=== PATIENT | female | born 1975 | race African-American/Black ===

== ENCOUNTER 2020-05-10 02:22 | Outpatient (CLI) | payer OTHER, SELFPAY ==
[2020-05-10 18:46] LABS: SARS-CoV-2 RNA PCR Negative
== END 2020-05-10 02:23 | disposition home or self-care (01) ==
LOC: ANHCOVIDDT 02:22
PROVIDERS: PCP Nurse Practitioner Family; Visit Provider Obstetrics & Gynecology
DX: Z01.818 Encounter for other preprocedural examination (principal); Z20.828 Contact with and (suspected) exposure to other viral communicable diseases
CPT/HCPCS: 87635; C9803; U0003

== ENCOUNTER 2020-05-10 08:32 | Outpatient (CLI) | payer OTHER, SELFPAY ==
--- NOTE | 2020-05-10 08:41 | ECG_ITS ---
Measurements Intervals [place] Rate: 73 P: 60 OK: 135 QRS: 17 QRSD: 92 T: -21 QT: 365 QTc: 404 Interpretive Statements SINUS RHYTHM LOW VOLTAGE- PRECORDIAL LEADS BORDERLINE ST-T WAVE ABNORMALITY- ANTEROLAT/INF LEADS BASELINE ARTIFACT- I, II, III, AVR, AVL, AVF BORDERLINE ECG Electronically Signed On 05-10-2020 9:01:18 GENERAL ACCOUNTANT by Jerrell Ballesteros D.O.
== END 2020-05-10 08:33 | disposition home or self-care (01) ==
PROVIDERS: PCP Nurse Practitioner Family; Visit Provider Obstetrics & Gynecology
DX: Z01.818 Encounter for other preprocedural examination (principal); I10 Essential (primary) hypertension; R94.31 Abnormal electrocardiogram [ECG] [EKG]
CPT/HCPCS: 93005

== ENCOUNTER 2020-05-13 01:37 | Day surgery (SDC) | payer OTHER, SELFPAY ==
[2020-05-09 08:40] VITALS: BMI 31.9
--- NOTE | 2020-05-13 09:09 | P.PNAN_ITS ---
Anes - Initial Pre Proc Eval Procedure: Operation Date: 05/13/20 13:30 Proposed Procedures p Hysteroscopy, Laura Endometrial Ablation - Augie Sim MD Date/Time: 05/13/20 09:09 Surgeon: Augie Sim MD Pre Op Diagnosis: Abnormal Uterine Bleeding Patient Data Age: 44 Gender: F Height: 1.73 m Weight: 95.35 kg Allergies Allergy/AdvReac Type Severity Reaction Status Date / Time No Known Allergies Allergy Verified 05/13/20 11:50 Home Medications Medication Instructions Recorded Confirmed Type metoprolol succinate 25 mg PO DAILY 05/09/20 05/13/20 History Patient hx anesthesia problems: none Family hx anesthesia problems: none [facility] Past Medical History Medical History (Updated 05/13/20 @ 11:22 by Augie Sim MD) Abnormal uterine bleeding (AUB) Hypertension Surgical History Surgical History History of cholecystectomy Social History Social History Smoking status: Never smoker Living arrangements: with family Spiritual care concerns: No Anes - Eval Final PreProcedure Day of Procedure 05/13/20 09:09 Patient weight: obese Heart: regular rate and rhythm Lungs: clear to auscultation and normal air movement Airway: Mallampati scale class II Neurological: alert and oriented Last oral intake: >/= 8 hours ASA classification: III Emergent: no Anesthetic plan: proceed Anesthesia type and monitoring: general GIVS and standard monitoring Informed Consent: The patient's anesthetic plan and its attendant risks and benefits were discussed with the patient/family/POA. Questions were solicited and answers provided to the satisfaction of the patient/family/POA.
--- NOTE | 2020-05-13 11:15 | P.HP_ITS ---
History of Present Illness History of Present Illness Consent: Risks, benefits, and alternatives have been discussed and questions answered. Patient agrees to proceed with procedure. Chief complaint: Abnormal Uterine Bleeding Narrative: Marlen Lackey is a 44 year old female presents with abnormal uterine bleeding. Patient declines sterilization and hormonal therapy. [facility] Past Medical History Medical History Hypertension Surgical History Surgical History History of cholecystectomy Social History Social History Smoking status: Never smoker Living arrangements: with family Spiritual care concerns: No Meds Home Medications and Allergies Home Medications Medication Instructions Recorded Confirmed Type metoprolol succinate 25 mg PO DAILY 05/09/20 05/09/20 History Allergies Allergy/AdvReac Type Severity Reaction Status Date / Time No Known Allergies Allergy Verified 05/09/20 08:22 Exam Const: General: comfortable and alert Resp: Effort & Inspection: normal respiratory effort Cardio: Rate: regular rate Rhythm: regular rhythm GI: Inspection: normal to inspection : External Female Exam: normal external appearance Speculum Exam - Vagina: normal appearance of the vagina Bimanual exam- vagina & uterus: uterine size normal Bimanual Exam- Adnexa, other: normal adnexae Assessment and Plan Assessment and plan (1) Abnormal uterine bleeding (AUB): Code(s): N93.9 - Abnormal uterine and vaginal bleeding, unspecified Status: Acute Assessment and Plan: Scheduled for a hysteroscopy of denise ablation. Reiviewed procedure in detail including bleeding infection trauma and damage surrounding organs.
[2020-05-13] MEDS: ACETAMINOPHEN 500 MG TABLET 1000 MG PO (11:53)
[2020-05-13] MEDS: LACTATED RINGERS 1,000 ML 30 ML IV CONT (12:16)
[2020-05-13 12:17] VITALS: BP 139/91; PULSE 67; RESP 14; TEMP 36.3; O2SAT 100
--- NOTE | 2020-05-13 12:57 | WPDHPUPDATE1 ---
History and Physical Update Update Date/Time: 05/13/20 12:57 History and Physical has been reviewed, including an updated exam of the patient. There are NO changes in the patient's condition. Risks, benefits, and alternatives have been discussed and questions answered. Patient agrees to proceed with procedure.
--- NOTE | 2020-05-13 13:49 | PM.PROC ---
Procedure Note - Detailed Date of procedure: 05/13/20 Pre-op diagnosis: Abnormal Uterine Bleeding Post-op diagnosis: other (Polyp) Procedure performed: Hysteroscopy dilation and curettage with denise ablation Description of procedure: Patient taken to the operating room with IV running and prepped and draped in a normal sterile fashion. Patient was placed in a dorsal lithotomy position a bivalve speculum was placed into the vagina. The anterior lip of the cervix was grasped with a single-tooth tenaculum this service which injected at the 2 and 10 o'clock position with 5cc of lidocaine bilaterally. Uterus was sounded to 8cm cervix approximately3.5cm for a cavity length of 4.5cm hysteroscope was performed noting the endometrial polyp on the anterior wall polyp was grasped with polyp forceps graspers and removed curettage was performed in all 4 quadrants. The Simmering device was then set at 4.5cm cavity. Device was introduced into the cavity and passed on 1st attempt for cavity assessment. The device was activated with nerve ablation her took place for 120seconds abdomen over device was removed hysteroscope was reintroduced. The uterine cavity was ablated in all 4 quadrants. Hysteroscope was removed and tenaculum was removed tenaculum site noted to be hemostatic. Patient tolerated the procedure well sponge lap and needle counts were correct x2. Anesthesia: MAC and local Surgeon: Augie Sim MD Estimated blood loss (mL): 10 Drains: No Packing: No Pathology: yes Complications: None Condition: stable Disposition: observation Findings: anterior wall endometrial polyp.
[2020-05-13 13:55] VITALS: BP 129/96; PULSE 68; RESP 12; O2SAT 96
[2020-05-13 14:25] VITALS: BP 133/87; PULSE 58; RESP 14; O2SAT 98
[2020-05-13 14:55] VITALS: BP 134/95; PULSE 64; RESP 16; O2SAT 93
== END 2020-05-13 15:25 | disposition home or self-care (01) ==
PROVIDERS: PCP Nurse Practitioner Family; Visit Provider Obstetrics & Gynecology
PROC: 0U5B8ZZ Destruction of Endometrium, Via Natural or Artificial Opening Endoscopic (ICD-10-PCS; CPT 58563; principal; 2020-05-13 13:30)
DX: N93.9 Abnormal uterine and vaginal bleeding, unspecified (principal); N84.0 Polyp of corpus uteri; I10 Essential (primary) hypertension; E66.9 Obesity, unspecified; Z68.31 Body mass index [BMI] 31.0-31.9, adult
CPT/HCPCS: 58563; 87635; 88305; 93005; A9270; C9803; J2250; J2405; J2704; J3010; J7030; J7120; U0003